=== PATIENT | female | born 1995 | race African-American/Black ===

== ENCOUNTER 2023-08-16 08:19 | Emergency (ER) | payer MEDICAID ==
[~2023-08-16] VITALS: Ht 157.5 cm; Wt 51.3 kg
[2023-08-16 08:46] VITALS: BP 100/67; PULSE 97; RESP 18; TEMP 98.3; O2SAT 100
[2023-08-16] MEDS ORDERED: ACET500T58 PO (09:01)
[2023-08-16] MEDS ORDERED: LIDO5CRE14 EX (09:01)
== END 2023-08-16 09:02 | disposition home or self-care (01) ==
LOC: ER 08:19
DX: O00.90 Unspecified ectopic pregnancy without intrauterine pregnancy (principal); F15.90 Other stimulant use, unspecified, uncomplicated; Z3A.00 Weeks of gestation of pregnancy not specified